=== PATIENT | male | born 1950 | race Caucasian/White ===

== ENCOUNTER → 2020-04-04 10:44 | Outpatient (CLI) | payer MEDICARE, SELFPAY ==
--- NOTE | 2020-04-04 10:57 | XR_ITS ---
PROCEDURE: XR HIP RT 2-3V W/PELVIS CLINICAL INDICATION: RT HIP PAIN COMPARISON: No exams were available for comparison FINDINGS: There are mild osteoarthritic changes of the hips on the AP view of the pelvis. On the right side there are mild osteoarthritic changes. There is some spurring along the lesser trochanter. No fracture or dislocation. No lytic or blastic change. Subchondral cystic areas present at the lateral aspect of the acetabulum on both sides. Bilateral iliac artery stents are present. Soft tissue calcifications are present at the perineal region on both sides and there is some coarse calcification at the ischial tuberosities on both sides. IMPRESSION: Mild osteoarthritis Dictated by: Ra Francis MD 04/04/2020 14:46 Ra Francis MD in [place] 04/04/2020 14:46
== END ==
PROVIDERS: PCP Family Medicine; Visit Provider Family Medicine
DX: M25.551 Pain in right hip (principal)
CPT/HCPCS: 73502